=== PATIENT | female | born 1980 | race Caucasian/White ===

== ENCOUNTER 2018-06-19 05:07 | Inpatient (IN) | payer BC ==
[2018-06-19] MEDS ORDERED: Sodium Chloride 0.9% 2.5 ML Syringe FLUSH PRN (05:24)
[2018-06-19] MEDS ORDERED: Sodium Chloride 0.9% 10 ML Syringe FLUSH PRN (05:24)
[2018-06-19] MEDS ORDERED: ceFAZolin 2 GM in Premix Bag 1 BAG IV ONE (05:30)
[2018-06-19] MEDS ORDERED: Oxytocin/0.9 % Sodium Chloride 30 UNIT/500 ML BAG IV SCH (05:30)
[2018-06-19] MEDS ORDERED: Citric Acid/Sodium Citrate Solution 30 ML Cup PO SCH (05:30)
[2018-06-19] MEDS: Lactated Ringers 1,000 ML IV SCH ×2 (06:31→06:55)
[2018-06-19] MEDS ORDERED: ePHEDrine 50 MG/ML SDV ONE ×2 (07:20→07:23)
[2018-06-19] MEDS ORDERED: Ondansetron 4 MG/2 ML SDV ONE (07:20)
[2018-06-19] MEDS ORDERED: Propofol 200 MG/20 ML SDV ONE (07:21)
[2018-06-19] MEDS ORDERED: Sodium Chloride 0.9% 20 ML ONE ×2 (07:23→07:29)
[2018-06-19] MEDS ORDERED: ceFAZolin 1 GM Vial ONE (07:29)
[2018-06-19] MEDS ORDERED: Octyl 2-Cyanoacrylate 1 Tube ONE (07:29)
--- NOTE | 2018-06-19 07:37 | PCM.PREANE ---
Preanesthetic Assessment - Procedure Proposed Procedure: repeat section with tubal ligation - Anesthesia/Transfusion/Family Hx Anesthesia History: Prior Anesthesia Without Reaction Family History of Anesthesia Reaction: No Transfusion History: No Prior Transfusion(s) - Review of Systems Other: Reports: None - Physical Assessment NPO Status Date: 06/18/18 NPO Status Time: 23:00 Height: 5 ft 6 in Weight: 93.44 kg ASA Class: 2 Mental Status: Alert & Oriented x3 Airway Class: Mallampati = 1 Dentition: Reports: Normal Dentition Thyro-Mental Finger Breadths: 3 Mouth Opening Finger Breadths: 3 ROM/Head Extension: Full - Lab Values: Laboratory Last Values WBC 8.19 K/uL (4.0-11.0) 06/19/18 06:05 RBC 3.78 M/uL (4.30-5.90) L 06/19/18 06:05 Hgb 11.9 g/dL (12.0-16.0) L 06/19/18 06:05 Hct 34.5 % (36.0-46.0) L 06/19/18 06:05 MCV 91.3 fL (80.0-98.0) 06/19/18 06:05 MCH 31.5 pg (27.0-32.0) 06/19/18 06:05 MCHC 34.5 g/dL (31.0-37.0) 06/19/18 06:05 RDW Std Deviation 48.6 fl (28.0-62.0) 06/19/18 06:05 RDW Coeff of Eduardo 15 % (11.0-15.0) 06/19/18 06:05 Plt Count 175 K/uL (150-400) 06/19/18 06:05 MPV 10.50 fL (7.40-12.00) 06/19/18 06:05 Nucleated RBC % 0.0 /100WBC 06/19/18 06:05 Nucleated RBCs # 0 K/uL 06/19/18 06:05 Blood Type O POSITIVE 06/19/18 06:05 Antibody Screen NEGATIVE 06/19/18 06:05 - Allergies Allergies/Adverse Reactions: Allergies Allergy/AdvReac Type Severity Reaction Status Date / Time No Known Allergies Allergy Verified 06/14/18 12:28 - Blood Blood Available: Yes Product(s) Available: PRBC - Acknowledgements Anesthesia Type Planned: Spinal Pt an Appropriate Candidate for the Planned Anesthesia: Yes Alternatives and Risks of Anesthesia Discussed w Pt/Guardian: Yes Pt/Guardian Understands and Agrees with Anesthesia Plan: Yes PreAnesthesia Questionnaire HEENT History: Reports: Allergic Rhinitis, Other (See Below) Other HEENT History: wears glasses/contacts Gastrointestinal History: Reports: Other (See Below) Other Gastrointestinal History: heartburn during Genitourinary History: Reports: None EMERGING TECHNOLOGIES DIRECTOR History: Reports: Endometriosis, Musculoskeletal History: Reports: Fracture Other Musculoskeletal History: hx fx toes and fingers Neurological History: Reports: Migraines Hematologic History: Reports: None Immunologic History: Reports: None Oncologic (Cancer) History: Reports: None - Past Surgical History Head Surgeries/Procedures: Reports: None HEENT Surgical History: Reports: Oral Surgery, Tonsillectomy GI Surgical History: Reports: Colonoscopy Female Surgical History: Reports: Section, LEEP, Other (See Below) Other Female Surgeries/Procedures: laparoscopy x2 for endometriosis - SUBSTANCE USE Smoking Status *Q: Former Smoker Tobacco Use Within Last Twelve Months: Cigarettes Second Hand Smoke Exposure: No Recreational Drug Use History: No - HOME MEDS Home Medications: Home Meds Cholecalciferol (Vitamin D3) [Vitamin D3] 400 units PO DAILY 06/14/18 [History] Cyanocobalamin (Vitamin B12) [Vitamin B12] 1 injection IM ASDIRECTED 06/14/18 [ History] Fexofenadine [Camille] 180 mg PO DAILY 06/14/18 [History] Fish Oil/[place]-3 Fatty Acids [Fish Oil] 250 mg PO DAILY 06/14/18 [History] Iron Polysaccharides Complex [Ferrex 150] 150 mg PO ASDIRECTED 06/14/18 [History ] PNV95/Ferrous Fumarate/FA [ Vitamin Tablet] 1 tab PO DAILY 06/14/18 [ History] Triamcinolone Acetonide [Nasacort] 2 spray NASBOTH DAILY 06/14/18 [History] - CURRENT (IN HOUSE) MEDS Current Meds: Current Medications Citric Acid/Sodium Citrate (Bicitra Solution) 30 ml PO .ONCE KAREN Lactated Ringer's (Ringers, Lactated) 1,000 mls @ 500 mls/hr IV .BOLUS KAREN Last Admin: 06/19/18 06:55 Dose: 500 mls/hr Oxytocin/Sodium Chloride (Oxytocin 30 Unit/500 Ml-Ns) 30 unit in 500 mls @ 250 mls/hr IV TITRATE KAREN Sodium Chloride (Saline Flush) 10 ml FLUSH ASDIRECTED PRN PRN Reason: Keep Vein Open Sodium Chloride (Saline Flush) 2.5 ml FLUSH ASDIRECTED PRN PRN Reason: Keep Vein Open Discontinued Medications Cefazolin Sodium (Ancef) Confirm Administered Dose 2 gm .ROUTE .STK-MED ONE Stop: 06/19/18 07:30 Ephedrine Sulfate (Ephedrine Sulfate) Confirm Administered Dose 50 mg .ROUTE .STK-MED ONE Stop: 06/19/18 07:21 Ephedrine Sulfate (Ephedrine Sulfate) Confirm Administered Dose 50 mg .ROUTE .STK-MED ONE Stop: 06/19/18 07:24 Cefazolin Sodium/Dextrose 2 gm (/ Premix) 50 mls @ 100 mls/hr IV ONETIME ONE Stop: 06/19/18 05:59 Sodium Chloride (Normal Saline) Confirm Administered Dose 20 mls @ as directed .ROUTE .STK-MED ONE Stop: 06/19/18 07:24 Sodium Chloride (Normal Saline) Confirm Administered Dose 20 mls @ as directed .ROUTE .STK-MED ONE Stop: 06/19/18 07:30 Octyl Cyanoacrylate (Dermabond Advance) Confirm Administered Dose 1 applic .ROUTE .STK-MED ONE Stop: 06/19/18 07:30 Ondansetron HCl (Zofran) Confirm Administered Dose 4 mg .ROUTE .STK-MED ONE Stop: 06/19/18 07:21 Propofol (Diprivan 20 Ml) Confirm Administered Dose 200 mg .ROUTE .STK-MED ONE Stop: 06/19/18 07:22
[2018-06-19] MEDS ORDERED: Morphine PF 1 MG/ML Amp ONE (07:52)
[2018-06-19] MEDS ORDERED: Oxytocin 10 Units/1 ML SDV ONE (08:57)
[2018-06-19] MEDS ORDERED: Midazolam 1 MG/ML 2 ML SDV ONE (09:02)
[2018-06-19] MEDS ORDERED: Bisacodyl 10 MG Supp RECTAL PRN (09:25)
[2018-06-19] MEDS ORDERED: Ondansetron 4 MG/2 ML SDV IV PRN (09:25)
[2018-06-19] MEDS ORDERED: Lanolin 100% Cream 7 GM Tube TOP PRN (09:25)
[2018-06-19] MEDS ORDERED: diphenhydrAMINE 50 MG/ML SDV IVPUSH PRN ×2 (09:25→10:21)
[2018-06-19] MEDS ORDERED: Lactated Ringers 1,000 ML IV SCH (09:30)
--- NOTE | 2018-06-19 09:34 | PCM.OPNOTE ---
- General Post-Op/Procedure Note Date of Surgery/Procedure: 06/19/18 Operative Procedure(s): repeat with bilateral salpingectomy Findings: live male, 3640g, apgars 8/9, normal appearing tubes and ovaries, anterior low- lying placenta non-adherent, dense adhesion between anterior uterus and abdominal wall Pre Op Diagnosis: 39 week intrauterine , prior , declines VTOL , desires permanent sterilization Post-Op Diagnosis: Same Anesthesia Technique: Spinal Primary Surgeon: Amber Mancia Drill Runner: Arlen Medina Pathology: None Fluid Replacement, Intraop: 2,500 EBL in mLs: 600 Complications: None known Condition: Stable
[2018-06-19] MEDS: Ketorolac 30 MG/ML SDV IVPUSH SCH ×3 (09:52→22:05)
--- NOTE | 2018-06-19 10:02 | PCM.POSTAN ---
POST ANESTHESIA ASSESSMENT - MENTAL STATUS Mental Status: Alert - VITAL SIGNS Pulse Rate: 74 SaO2: 100 Resp Rate: 16 Blood Pressure: 112/65 Temperature: 36.5 C - RESPIRATORY Respiratory Status: Respiratory Rate WNL - CARDIOVASCULAR CV Status: Pulse Rate WNL - GASTROINTESTINAL GI Status: Other Free Text/Narrative:: Reflux/Heartburn - PAIN Pain Score: 2 (Patient has small area R lateral area. Toradol 30mg IV given with some resolve) - POST OP HYDRATION Hydration Status: Adequate & Stable
[2018-06-19] MEDS ORDERED: Nalbuphine 10 MG/1 ML Vial IVPUSH PRN (10:21)
[2018-06-19] MEDS ORDERED: Naloxone 0.4 MG/ML Syringe IVPUSH PRN (10:21)
[2018-06-19] MEDS ORDERED: fentaNYL 100 MCG/2 ML SDV IVPUSH PRN (10:23)
[2018-06-19] MEDS ORDERED: Acetaminophen/oxyCODONE 325-5 MG Tab PO PRN (10:23)
[2018-06-19] MEDS: Docusate Sodium 100 MG Cap PO SCH (22:06)
[2018-06-20] MEDS: Ketorolac 30 MG/ML SDV IVPUSH SCH ×2 (04:58→10:16)
--- NOTE | 2018-06-20 07:03 | PCM.PNPP ---
<Arlen Medina - Last Filed: 06/20/18 08:42> - General Info Date of Service: 06/20/18 Admission Dx/Problem (Free Text): Scheduled repeat Subjective Update: 37 year old POD1 from scheduled, repeat . Patient offers no complaints. Functional Status: Reports: Pain Controlled, Tolerating Diet, Ambulating, Urinating - Review of Systems General: Denies: Fever, Chills HEENT: Denies: Headaches, Visual Changes Pulmonary: Denies: Shortness of Breath, Pleuritic Chest Pain, Cough Cardiovascular: Denies: Chest Pain, Edema Gastrointestinal: Denies: Constipation, Diarrhea, Nausea, Vomiting Genitourinary: Denies: Dysuria, Frequency, Burning Musculoskeletal: Denies: Leg Pain Neurological: Denies: Dizziness, Headache - General Info Date of Service: 06/20/18 - Patient Data Vital Signs - Most Recent: Last Vital Signs Temp 36.3 C 06/19/18 23:00 Pulse 88 06/20/18 04:56 Resp 18 06/20/18 06:00 BP 105/55 L 06/20/18 04:56 Pulse Ox 100 06/20/18 06:00 Weight - Most Recent: 93.44 kg I&O - Last 24 Hours: Intake & Output 06/19/18 06/20/18 06/20/18 22:59 06:59 14:59 Output Total 400 525 Balance -400 -525 Lab Results - Last 24 Hours: Laboratory Results - last 24 hr 06/19/18 06/19/18 06/20/18 Range/Units 06:05 08:42 05:15 Hgb 9.5 L (12.0-16.0) g/dL Hct 27.7 L (36.0-46.0) % Cord ABG pH 7.355 (7.18-7.38) Cord ABG Base Excess -1 H (-10--2) Cord VBG pH 7.368 (7.25-7.45) Cord VBG Base Excess -1 H (-10--2) Blood Type O POSITIVE Antibody Screen NEGATIVE Med Orders - Current: Current Medications Bisacodyl (Dulcolax) 10 mg RECTAL .ONCE PRN PRN Reason: Constipation Diphenhydramine HCl (Benadryl) 25 mg IVPUSH Q6H PRN PRN Reason: Itching or Nausea Diphenhydramine HCl (Benadryl) 25 mg IVPUSH Q4H PRN PRN Reason: Itching Stop: 06/20/18 10:22 Docusate Sodium (Colace) 100 mg PO BID [facility] Last Admin: 06/19/18 22:06 Dose: 100 mg Emollient Ointment (Lansinoh Hpa) 0 gm TOP ASDIRECTED PRN PRN Reason: Sore Nipples Fentanyl (Sublimaze) 25 - 50 mcg IVPUSH Q30M PRN PRN Reason: Pain Lactated Ringer's (Ringers, Lactated) 1,000 mls @ 125 mls/hr IV ASDIRECTED KAREN Ibuprofen (Motrin) 800 mg PO Q8H PRN PRN Reason: mild pain or fever Ketorolac Tromethamine (Toradol) 30 mg IVPUSH Q6H KAREN Stop: 06/20/18 09:31 Last Admin: 06/20/18 04:58 Dose: Not Given Nalbuphine HCl (Nubain) 5 mg IVPUSH Q3H PRN PRN Reason: Pruritis Stop: 06/20/18 10:22 Naloxone HCl (Narcan) 0.1 mg IVPUSH ONETIME PRN PRN Reason: Other Stop: 06/20/18 10:22 Ondansetron HCl (Zofran) 4 mg IV Q4H PRN PRN Reason: Nausea/Vomiting Oxycodone/Acetaminophen (Percocet 325-5 Mg) 1 tab PO Q4H PRN PRN Reason: Pain (moderate 4-6) Oxycodone/Acetaminophen (Percocet 325-5 Mg) 2 tab PO Q4H PRN PRN Reason: Pain (moderate 4-6) Oxycodone/Acetaminophen (Percocet 325-5 Mg) 1 - 2 tab PO Q6H PRN PRN Reason: Pain Stop: 06/21/18 14:00 Last Admin: 06/19/18 13:33 Dose: 1 tab Discontinued Medications Cefazolin Sodium (Ancef) Confirm Administered Dose 2 gm .ROUTE .STK-MED ONE Stop: 06/19/18 07:30 Citric Acid/Sodium Citrate (Bicitra Solution) 30 ml PO .ONCE [facility] Last Admin: 06/19/18 08:14 Dose: 30 ml Ephedrine Sulfate (Ephedrine Sulfate) Confirm Administered Dose 50 mg .ROUTE .STK-MED ONE Stop: 06/19/18 07:21 Ephedrine Sulfate (Ephedrine Sulfate) Confirm Administered Dose 50 mg .ROUTE .STK-MED ONE Stop: 06/19/18 07:24 Cefazolin Sodium/Dextrose 2 gm (/ Premix) 50 mls @ 100 mls/hr IV ONETIME ONE Stop: 06/19/18 05:59 Lactated Ringer's (Ringers, Lactated) 1,000 mls @ 500 mls/hr IV .BOLUS KAREN Last Admin: 06/19/18 06:55 Dose: 500 mls/hr Oxytocin/Sodium Chloride (Oxytocin 30 Unit/500 Ml-Ns) 30 unit in 500 mls @ 250 mls/hr IV TITRATE KAREN Sodium Chloride (Normal Saline) Confirm Administered Dose 20 mls @ as directed .ROUTE .STK-MED ONE Stop: 06/19/18 07:24 Sodium Chloride (Normal Saline) Confirm Administered Dose 20 mls @ as directed .ROUTE .STK-MED ONE Stop: 06/19/18 07:30 Midazolam HCl (Versed 1 Mg/Ml) Confirm Administered Dose 2 mg .ROUTE .STK-MED ONE Stop: 06/19/18 09:03 Morphine Sulfate (Duramorph Pf) Confirm Administered Dose 1 mg .ROUTE .STK-MED ONE Stop: 06/19/18 07:53 Octyl Cyanoacrylate (Dermabond Advance) Confirm Administered Dose 1 applic .ROUTE .STK-MED ONE Stop: 06/19/18 07:30 Ondansetron HCl (Zofran) Confirm Administered Dose 4 mg .ROUTE .STK-MED ONE Stop: 06/19/18 07:21 Oxytocin (Pitocin) Confirm Administered Dose 20 unit .ROUTE .STK-MED ONE Stop: 06/19/18 08:58 Propofol (Diprivan 20 Ml) Confirm Administered Dose 200 mg .ROUTE .STK-MED ONE Stop: 06/19/18 07:22 Sodium Chloride (Saline Flush) 10 ml FLUSH ASDIRECTED PRN PRN Reason: Keep Vein Open Sodium Chloride (Saline Flush) 2.5 ml FLUSH ASDIRECTED PRN PRN Reason: Keep Vein Open - Interaction Disposition, : [place] in Room with Family Infant Interaction: Holding Infant Feeding: Breastfed Infant; Nursed Well Support Person: - Recovery Exam Fundal Tone: Firm Fundal Level: 2 Fingerbreadths Below Umbilicus Fundal Placement: Midline Lochia Amount: Small Lochia Color: Rubra/Red Perineum Description: Intact, Minimal Bruising/Swelling Episiotomy/Laceration: None Bladder Status: Voiding Urinary Elimination: Voided - Exam General: Alert, Oriented, No Acute Distress HEENT: Pupils Equal, Pupils Reactive Lungs: Clear to Auscultation, Normal Respiratory Effort. No: Crackles, Wheezing Cardiovascular: Regular Rate, Regular Rhythm, No Murmurs GI/Abdominal Exam: Normal Bowel Sounds, No Distention. No: Guarding, Rigid, Rebound Extremities: Normal Inspection, Normal Range of Motion, Non-Tender, No Pedal Edema, Normal Capillary Refill Skin: Warm, Dry, Intact Wound/Incisions: Healing Well, Dressing Dry and Intact Neurological: No New Focal Deficit Psy/Mental Status: Alert, Normal Affect, Normal Mood - Problem List Review Problem List Initiated/Reviewed/Updated: Yes - Assessment Assessment:: 37 year old POD1 from scheduled repeat . well, minimal lochia, pain controlled. - Plan Plan:: Continue routine postop cares. Likely discharge tomorrow. <Amber Mancia - Last Filed: 06/20/18 09:00> - Patient Data Vital Signs - Most Recent: Last Vital Signs Temp 36.5 C 06/20/18 07:18 Pulse 74 06/20/18 07:18 Resp 18 06/20/18 07:18 BP 112/65 06/20/18 07:18 Pulse Ox 96 06/20/18 07:00 I&O - Last 24 Hours: Intake & Output 06/19/18 06/20/18 06/20/18 22:59 06:59 14:59 Output Total 400 525 300 Balance -400 -525 -300 Lab Results - Last 24 Hours: Laboratory Results - last 24 hr 06/19/18 06/20/18 Range/Units 08:42 05:15 Hgb 9.5 L (12.0-16.0) g/dL Hct 27.7 L (36.0-46.0) % Cord ABG pH 7.355 (7.18-7.38) Cord ABG Base Excess -1 H (-10--2) Cord VBG pH 7.368 (7.25-7.45) Cord VBG Base Excess -1 H (-10--2) Med Orders - Current: Current Medications Bisacodyl (Dulcolax) 10 mg RECTAL .ONCE PRN PRN Reason: Constipation Diphenhydramine HCl (Benadryl) 25 mg IVPUSH Q6H PRN PRN Reason: Itching or Nausea Diphenhydramine HCl (Benadryl) 25 mg IVPUSH Q4H PRN PRN Reason: Itching Stop: 06/20/18 10:22 Docusate Sodium (Colace) 100 mg PO BID [facility] Last Admin: 06/19/18 22:06 Dose: 100 mg Emollient Ointment (Lansinoh Hpa) 0 gm TOP ASDIRECTED PRN PRN Reason: Sore Nipples Fentanyl (Sublimaze) 25 - 50 mcg IVPUSH Q30M PRN PRN Reason: Pain Lactated Ringer's (Ringers, Lactated) 1,000 mls @ 125 mls/hr IV ASDIRECTED KAREN Ibuprofen (Motrin) 800 mg PO Q8H PRN PRN Reason: mild pain or fever Ketorolac Tromethamine (Toradol) 30 mg IVPUSH Q6H [facility] Stop: 06/20/18 09:31 Last Admin: 06/20/18 04:58 Dose: Not Given Nalbuphine HCl (Nubain) 5 mg IVPUSH Q3H PRN PRN Reason: Pruritis Stop: 06/20/18 10:22 Naloxone HCl (Narcan) 0.1 mg IVPUSH ONETIME PRN PRN Reason: Other Stop: 06/20/18 10:22 Ondansetron HCl (Zofran) 4 mg IV Q4H PRN PRN Reason: Nausea/Vomiting Oxycodone/Acetaminophen (Percocet 325-5 Mg) 1 tab PO Q4H PRN PRN Reason: Pain (moderate 4-6) Oxycodone/Acetaminophen (Percocet 325-5 Mg) 2 tab PO Q4H PRN PRN Reason: Pain (moderate 4-6) Oxycodone/Acetaminophen (Percocet 325-5 Mg) 1 - 2 tab PO Q6H PRN PRN Reason: Pain Stop: 06/21/18 14:00 Last Admin: 06/19/18 13:33 Dose: 1 tab Discontinued Medications Cefazolin Sodium (Ancef) Confirm Administered Dose 2 gm .ROUTE .STK-MED ONE Stop: 06/19/18 07:30 Citric Acid/Sodium Citrate (Bicitra Solution) 30 ml PO .ONCE KAREN Last Admin: 06/19/18 08:14 Dose: 30 ml Ephedrine Sulfate (Ephedrine Sulfate) Confirm Administered Dose 50 mg .ROUTE .STK-MED ONE Stop: 06/19/18 07:21 Ephedrine Sulfate (Ephedrine Sulfate) Confirm Administered Dose 50 mg .ROUTE .STK-MED ONE Stop: 06/19/18 07:24 Cefazolin Sodium/Dextrose 2 gm (/ Premix) 50 mls @ 100 mls/hr IV ONETIME ONE Stop: 06/19/18 05:59 Lactated Ringer's (Ringers, Lactated) 1,000 mls @ 500 mls/hr IV .BOLUS KAREN Last Admin: 06/19/18 06:55 Dose: 500 mls/hr Oxytocin/Sodium Chloride (Oxytocin 30 Unit/500 Ml-Ns) 30 unit in 500 mls @ 250 mls/hr IV TITRATE KAREN Sodium Chloride (Normal Saline) Confirm Administered Dose 20 mls @ as directed .ROUTE .ST-MED ONE Stop: 06/19/18 07:24 Sodium Chloride (Normal Saline) Confirm Administered Dose 20 mls @ as directed .ROUTE .STK-MED ONE Stop: 06/19/18 07:30 Midazolam HCl (Versed 1 Mg/Ml) Confirm Administered Dose 2 mg .ROUTE .STK-MED ONE Stop: 06/19/18 09:03 Morphine Sulfate (Duramorph Pf) Confirm Administered Dose 1 mg .ROUTE .STK-MED ONE Stop: 06/19/18 07:53 Octyl Cyanoacrylate (Dermabond Advance) Confirm Administered Dose 1 applic .ROUTE .STK-MED ONE Stop: 06/19/18 07:30 Ondansetron HCl (Zofran) Confirm Administered Dose 4 mg .ROUTE .STK-MED ONE Stop: 06/19/18 07:21 Oxytocin (Pitocin) Confirm Administered Dose 20 unit .ROUTE .STK-MED ONE Stop: 06/19/18 08:58 Propofol (Diprivan 20 Ml) Confirm Administered Dose 200 mg .ROUTE .STK-MED ONE Stop: 06/19/18 07:22 Sodium Chloride (Saline Flush) 10 ml FLUSH ASDIRECTED PRN PRN Reason: Keep Vein Open Sodium Chloride (Saline Flush) 2.5 ml FLUSH ASDIRECTED PRN PRN Reason: Keep Vein Open - Problem List Review Problem List Initiated/Reviewed/Updated: Yes - My Orders Last 24 Hours: My Active Orders 06/19/18 09:25 Patient Status [ADT] Routine Ambulate [RC] PER UNIT ROUTINE Communication Order [RC] PER UNIT ROUTINE Communication Order [RC] PER UNIT ROUTINE Communication Order [RC] Per Unit Routine Intake and Output [RC] Q8H May Shower [RC] ASDIRECTED Notify Provider Intake and Out [RC] ASDIRECTED Notify Provider Vital Signs [RC] ASDIRECTED RT Incentive Spirometry [RC] Q2HWA Vital Signs [RC] PER UNIT ROUTINE Acetaminophen/oxyCODONE [Percocet 325-5 MG] 1 tab PO Q4H PRN Acetaminophen/oxyCODONE [Percocet 325-5 MG] 2 tab PO Q4H PRN Bisacodyl [Dulcolax] 10 mg RECTAL .ONCE PRN Ibuprofen [Motrin] 800 mg PO Q8H PRN Lanolin [Lansinoh HPA] See Dose Instructions TOP ASDIRECTED PRN Ondansetron [Zofran] 4 mg IV Q4H PRN diphenhydrAMINE [Benadryl] 25 mg IVPUSH Q6H PRN Abdominal Binder [OM.PC] Routine Assess Lochia [WOMSER] Per Unit Routine Assess Uterine Involution [WOMSER] Per Unit Routine Breast Pump [WOMSER] Per Unit Routine Peripheral IV Discontinue [OM.PC] Routine Sequential Compression Device [OM.PC] Per Unit Routine Resuscitation Status Routine 06/19/18 09:30 Ketorolac [Toradol] 30 mg IVPUSH Q6H Lactated Ringers [Ringers, Lactated] 1,000 ml IV ASDIRECTED 06/19/18 21:00 Docusate Sodium [Colace] 100 mg PO BID 06/19/18 Dinner Regular Diet [DIET] - Assessment Assessment:: Patient was seen and examined by me and I agree with above.
--- NOTE | 2018-06-20 07:18 | PCM48HPAN ---
Post Anesthesia Note - EVALUATION WITHIN 48HRS OF ANESTHETIC Vital Signs in Normal Range: Yes Patient Participated in Evaluation: Yes Respiratory Function Stable: Yes Airway Patent: Yes Cardiovascular Function Stable: Yes Hydration Status Stable: Yes Pain Control Satisfactory: Yes Nausea and Vomiting Control Satisfactory: Yes Mental Status Recovered: Yes Pulse Rate: 74 Resp Rate: 18 Temperature: 36.5 C Blood Pressure: 112/65
--- NOTE | 2018-06-20 08:09 | OR ---
SURGEON: Amber Mancia M.D. DATE OF PROCEDURE: 06/19/2018 PREOPERATIVE DIAGNOSIS: A 39-week intrauterine , prior delivery, desires repeat C- section and desires sterilization. POSTOPERATIVE DIAGNOSIS: A 39-week intrauterine , prior delivery, desires repeat C- section and desires sterilization. PROCEDURE: Repeat low transverse section with bilateral salpingectomy. GAS WELDER APPRENTICE: Arlen Medina MS4. ANESTHESIA: Spinal. ESTIMATED BLOOD LOSS: 600 mL. FLUIDS: 2500 mL crystalloid. FINDINGS: Liveborn male, score 8 and 9, weighing 3640 g. Normal-appearing uterus, tubes, and ovaries. The placenta was low lying and anterior just above the incision line but nonadherent. COMPLICATIONS: None known. DISPOSITION: Mother is in recovery in good condition. is in nursery in good condition. BRIEF HISTORY: This is a 37-year-old female. She is G6, P4-0-1-4, presents for a repeat section. This is her third ; she also requests permanent sterilization. She was offered alternative contraception, including hormonal barrier, vasectomy, and long-acting reversible contraception. She declined these, and she desires to proceed with permanent sterilization. She requests complete salpingectomy, as she wants no risk of ectopic and risk of failure. She understands this may reduce risk of ovarian cancer. She also understands it is completely irreversible. Risks of delivery were discussed including bleeding, infection, injury to bowel, bladder, blood vessels, ureters, or other organs, risk of anesthesia, understanding all these risks, she does desire to proceed with a repeat with bilateral salpingectomy. DESCRIPTION OF PROCEDURE: With the patient in left tilt position, under adequate spinal analgesia, the abdomen was prepped with chlorhexidine and draped in usual fashion for abdominal surgery. Julian catheter had been placed. SCDs were in place, and Ancef 2 g IV had been given. After documentation of adequate analgesia and an appropriate time-out, which had been held, the prior cicatrix was excised, and the incision was carried through the subcutaneous tissue to the fascia, which was scored transversely in the midline. The fascial incision was extended laterally using curved [place] scissors. The fascia was elevated from the underlying rectus muscle and using sharp and blunt dissection. The rectus muscles were then in midline using sharp and blunt dissection. There was a dense adhesion between the anterior abdominal wall and the anterior uterus, and this was incised using electrocautery. The Sebastian O retractor was then placed. The visceroperitoneum over the lower uterine segment was incised to develop an adequate bladder flap. There was note of prominent blood vessels over the lower uterine segment, and a transverse curvilinear incision was made over the lower uterine segment, trying to avoid these vessels as much as possible, and a finger was used to enter the uterine cavity and this incision was extended using blunt dissection. It was apparent that the anterior low- lying placenta was just above the incision site. Allis clamp was used to rupture membranes. Clear fluid was noted. The head was delivered via the uterine incision and was bulb suctioned by nose and mouth. The remainder of the 's shoulders and body were delivered without any difficulty with the cord being cut and clamped. The was handed to the nurse in attendance at delivery. The infant is a liveborn male, scores 8 and 9, weighing 3640 g. Cord blood was collected for cord ABGs, as well as routine cord blood sampling. The placenta was removed by manual extraction. The uterus was cleaned with dry laparotomy tape. The cervix was opened with a ring forceps. The uterine incision was closed with a running lock suture of 0 Polysorb followed by an imbricating layer of 0 Polysorb followed by several [id number] sutures in the midline where the prominent blood vessels had been noted for complete hemostasis. I did confirm verbally with the patient that she desired permanent sterilization, and at this point, the tips of the fimbria were then grasped with a Jun clamp. The mesosalpinx was incised using the Harmonic Blaine at the setting of 3 to the proximal cornua, where the tube was transected, and the tube was sent to Pathology. This was repeated on the opposite side. The mesosalpinx was hemostatic. The uterine incision was inspected and was hemostatic; therefore, the Sebastian O retractor was removed, after the pericolic gutters and posterior cul-de-sac had been cleaned with wet laparotomy tape. After the Sebastian retractor had been removed, the uterine incision was again inspected, it remained completely hemostatic. The rectus muscle and peritoneum were loosely approximated in the midline using a running mattress suture of 0 Polysorb. The posterior aspect of the fascia was inspected, and areas of bleeding that were noted were cauterized. The fascial incision was closed with a running suture of 0 Polysorb. Subcutaneous tissue was irrigated. Any areas of bleeding that were noted were cauterized. The skin was closed with a running subcuticular suture of 3-0 Monocryl and followed by Dermabond. Final sponge, needle, and instrument counts were reported as correct. There were no known complications. The infant is in nursery in good condition. Mother remains in recovery in good condition. CARINA PIERSON /[id number]
[2018-06-20] MEDS: Acetaminophen/oxyCODONE 325-5 MG Tab PO PRN ×4 (08:58→21:44)
[2018-06-20] MEDS: Docusate Sodium 100 MG Cap PO SCH ×2 (09:00→21:44)
[2018-06-20] MEDS: Ibuprofen 800 MG Tab PO PRN ×2 (15:51→23:46)
[2018-06-21] MEDS: Acetaminophen/oxyCODONE 325-5 MG Tab PO PRN ×2 (03:57→08:25)
--- NOTE | 2018-06-21 07:42 | PCM.PNPP ---
<Arlen Medina - Last Filed: 06/21/18 08:23> - General Info Date of Service: 06/21/18 Admission Dx/Problem (Free Text): repeat Subjective Update: 37 year old POD2 from scheduled, repeat . Patient offers no complaints. Functional Status: Reports: Pain Controlled, Tolerating Diet, Ambulating, Urinating - Review of Systems General: Denies: Fever, Chills HEENT: Denies: Headaches, Visual Changes Pulmonary: Denies: Shortness of Breath, Pleuritic Chest Pain, Cough Cardiovascular: Denies: Chest Pain, Edema Gastrointestinal: Denies: Constipation, Diarrhea, Nausea, Vomiting Genitourinary: Denies: Dysuria, Frequency, Burning Musculoskeletal: Denies: Leg Pain Neurological: Denies: Dizziness, Headache - General Info Date of Service: 06/21/18 - Patient Data Vital Signs - Most Recent: Last Vital Signs Temp 36.7 C 06/21/18 04:00 Pulse 100 06/21/18 04:00 Resp 18 06/21/18 04:00 BP 108/62 06/21/18 04:00 Pulse Ox 97 06/21/18 04:00 Weight - Most Recent: 93.44 kg Med Orders - Current: Current Medications Bisacodyl (Dulcolax) 10 mg RECTAL .ONCE PRN PRN Reason: Constipation Diphenhydramine HCl (Benadryl) 25 mg IVPUSH Q6H PRN PRN Reason: Itching or Nausea Docusate Sodium (Colace) 100 mg PO BID [facility] Last Admin: 06/20/18 21:44 Dose: 100 mg Emollient Ointment (Lansinoh Hpa) 0 gm TOP ASDIRECTED PRN PRN Reason: Sore Nipples Fentanyl (Sublimaze) 25 - 50 mcg IVPUSH Q30M PRN PRN Reason: Pain Lactated Ringer's (Ringers, Lactated) 1,000 mls @ 125 mls/hr IV ASDIRECTED [facility] Ibuprofen (Motrin) 800 mg PO Q8H PRN PRN Reason: mild pain or fever Last Admin: 06/20/18 23:46 Dose: 800 mg Ondansetron HCl (Zofran) 4 mg IV Q4H PRN PRN Reason: Nausea/Vomiting Oxycodone/Acetaminophen (Percocet 325-5 Mg) 1 tab PO Q4H PRN PRN Reason: Pain (moderate 4-6) Last Admin: 06/20/18 21:44 Dose: 1 tab Oxycodone/Acetaminophen (Percocet 325-5 Mg) 2 tab PO Q4H PRN PRN Reason: Pain (moderate 4-6) Last Admin: 06/21/18 03:57 Dose: 2 tab Oxycodone/Acetaminophen (Percocet 325-5 Mg) 1 - 2 tab PO Q6H PRN PRN Reason: Pain Stop: 06/21/18 14:00 Last Admin: 06/19/18 13:33 Dose: 1 tab Discontinued Medications Cefazolin Sodium (Ancef) Confirm Administered Dose 2 gm .ROUTE .STK-MED ONE Stop: 06/19/18 07:30 Citric Acid/Sodium Citrate (Bicitra Solution) 30 ml PO .ONCE KAREN Last Admin: 06/19/18 08:14 Dose: 30 ml Diphenhydramine HCl (Benadryl) 25 mg IVPUSH Q4H PRN PRN Reason: Itching Stop: 06/20/18 10:22 Ephedrine Sulfate (Ephedrine Sulfate) Confirm Administered Dose 50 mg .ROUTE .STK-MED ONE Stop: 06/19/18 07:21 Ephedrine Sulfate (Ephedrine Sulfate) Confirm Administered Dose 50 mg .ROUTE .STK-MED ONE Stop: 06/19/18 07:24 Cefazolin Sodium/Dextrose 2 gm (/ Premix) 50 mls @ 100 mls/hr IV ONETIME ONE Stop: 06/19/18 05:59 Lactated Ringer's (Ringers, Lactated) 1,000 mls @ 500 mls/hr IV .BOLUS KAREN Last Admin: 06/19/18 06:55 Dose: 500 mls/hr Oxytocin/Sodium Chloride (Oxytocin 30 Unit/500 Ml-Ns) 30 unit in 500 mls @ 250 mls/hr IV TITRATE KAREN Sodium Chloride (Normal Saline) Confirm Administered Dose 20 mls @ as directed .ROUTE .STK-MED ONE Stop: 06/19/18 07:24 Sodium Chloride (Normal Saline) Confirm Administered Dose 20 mls @ as directed .ROUTE .STK-MED ONE Stop: 06/19/18 07:30 Ketorolac Tromethamine (Toradol) 30 mg IVPUSH Q6H [facility] Stop: 06/20/18 09:31 Last Admin: 06/20/18 10:16 Dose: 30 mg Midazolam HCl (Versed 1 Mg/Ml) Confirm Administered Dose 2 mg .ROUTE .STK-MED ONE Stop: 06/19/18 09:03 Morphine Sulfate (Duramorph Pf) Confirm Administered Dose 1 mg .ROUTE .STK-MED ONE Stop: 06/19/18 07:53 Nalbuphine HCl (Nubain) 5 mg IVPUSH Q3H PRN PRN Reason: Pruritis Stop: 06/20/18 10:22 Naloxone HCl (Narcan) 0.1 mg IVPUSH ONETIME PRN PRN Reason: Other Stop: 06/20/18 10:22 Octyl Cyanoacrylate (Dermabond Advance) Confirm Administered Dose 1 applic .ROUTE .STK-MED ONE Stop: 06/19/18 07:30 Ondansetron HCl (Zofran) Confirm Administered Dose 4 mg .ROUTE .STK-MED ONE Stop: 06/19/18 07:21 Oxytocin (Pitocin) Confirm Administered Dose 20 unit .ROUTE .STK-MED ONE Stop: 06/19/18 08:58 Propofol (Diprivan 20 Ml) Confirm Administered Dose 200 mg .ROUTE .STK-MED ONE Stop: 06/19/18 07:22 Sodium Chloride (Saline Flush) 10 ml FLUSH ASDIRECTED PRN PRN Reason: Keep Vein Open Sodium Chloride (Saline Flush) 2.5 ml FLUSH ASDIRECTED PRN PRN Reason: Keep Vein Open - Infant Interaction Disposition, : in Room with Family Infant Interaction: Holding Infant Feeding: Breastfed ; Nursed Well Support Person: - Recovery Exam Fundal Tone: Firm Fundal Level: 2 Fingerbreadths Below Umbilicus Fundal Placement: Midline Lochia Amount: Scant Lochia Color: Rubra/Red Perineum Description: Intact, Minimal Bruising/Swelling Episiotomy/Laceration: None Bladder Status: Voiding Urinary Elimination: Voided - Exam General: Alert, Oriented, No Acute Distress HEENT: Pupils Equal, Pupils Reactive Lungs: Clear to Auscultation, Normal Respiratory Effort. No: Wheezing Cardiovascular: Regular Rate, Regular Rhythm, No Murmurs GI/Abdominal Exam: Normal Bowel Sounds, Non-Tender, No Distention. No: Guarding , Rigid, Rebound Extremities: Normal Inspection, Normal Range of Motion, Non-Tender, No Pedal Edema, Normal Capillary Refill Skin: Warm, Dry, Intact Wound/Incisions: Healing Well, Dressing Dry and Intact Neurological: No New Focal Deficit Psy/Mental Status: Alert, Normal Affect, Normal Mood - Problem List Review Problem List Initiated/Reviewed/Updated: Yes - Assessment Assessment:: 37 year old POD2 from scheduled, repeat . continuing to go well. Minimal lochia. Pain controlled. Ready for discharge. - Plan Plan:: Discharge today Follow up in clinic in 2 weeks for wound check, 6 weeks for routine exam Pain meds: percocet and ibuprofen <Amber Mancia - Last Filed: 06/21/18 08:41> - Patient Data Vital Signs - Most Recent: Last Vital Signs Temp 36.7 C 06/21/18 04:00 Pulse 100 06/21/18 04:00 Resp 18 06/21/18 04:00 BP 108/62 06/21/18 04:00 Pulse Ox 97 06/21/18 04:00 Med Orders - Current: Current Medications Bisacodyl (Dulcolax) 10 mg RECTAL .ONCE PRN PRN Reason: Constipation Diphenhydramine HCl (Benadryl) 25 mg IVPUSH Q6H PRN PRN Reason: Itching or Nausea Docusate Sodium (Colace) 100 mg PO BID [facility] Last Admin: 06/21/18 08:25 Dose: 100 mg Emollient Ointment (Lansinoh Hpa) 0 gm TOP ASDIRECTED PRN PRN Reason: Sore Nipples Fentanyl (Sublimaze) 25 - 50 mcg IVPUSH Q30M PRN PRN Reason: Pain Lactated Ringer's (Ringers, Lactated) 1,000 mls @ 125 mls/hr IV ASDIRECTED [facility] Ibuprofen (Motrin) 800 mg PO Q8H PRN PRN Reason: mild pain or fever Last Admin: 06/20/18 23:46 Dose: 800 mg Ondansetron HCl (Zofran) 4 mg IV Q4H PRN PRN Reason: Nausea/Vomiting Oxycodone/Acetaminophen (Percocet 325-5 Mg) 1 tab PO Q4H PRN PRN Reason: Pain (moderate 4-6) Last Admin: 06/20/18 21:44 Dose: 1 tab Oxycodone/Acetaminophen (Percocet 325-5 Mg) 2 tab PO Q4H PRN PRN Reason: Pain (moderate 4-6) Last Admin: 06/21/18 08:25 Dose: 2 tab Oxycodone/Acetaminophen (Percocet 325-5 Mg) 1 - 2 tab PO Q6H PRN PRN Reason: Pain Stop: 06/21/18 14:00 Last Admin: 06/19/18 13:33 Dose: 1 tab Discontinued Medications Cefazolin Sodium (Ancef) Confirm Administered Dose 2 gm .ROUTE .STK-MED ONE Stop: 06/19/18 07:30 Citric Acid/Sodium Citrate (Bicitra Solution) 30 ml PO .ONCE KAREN Last Admin: 06/19/18 08:14 Dose: 30 ml Diphenhydramine HCl (Benadryl) 25 mg IVPUSH Q4H PRN PRN Reason: Itching Stop: 06/20/18 10:22 Ephedrine Sulfate (Ephedrine Sulfate) Confirm Administered Dose 50 mg .ROUTE .STK-MED ONE Stop: 06/19/18 07:21 Ephedrine Sulfate (Ephedrine Sulfate) Confirm Administered Dose 50 mg .ROUTE .STK-MED ONE Stop: 06/19/18 07:24 Cefazolin Sodium/Dextrose 2 gm (/ Premix) 50 mls @ 100 mls/hr IV ONETIME ONE Stop: 06/19/18 05:59 Lactated Ringer's (Ringers, Lactated) 1,000 mls @ 500 mls/hr IV .BOLUS KAREN Last Admin: 06/19/18 06:55 Dose: 500 mls/hr Oxytocin/Sodium Chloride (Oxytocin 30 Unit/500 Ml-Ns) 30 unit in 500 mls @ 250 mls/hr IV TITRATE KAREN Sodium Chloride (Normal Saline) Confirm Administered Dose 20 mls @ as directed .ROUTE .STK-MED ONE Stop: 06/19/18 07:24 Sodium Chloride (Normal Saline) Confirm Administered Dose 20 mls @ as directed .ROUTE .STK-MED ONE Stop: 06/19/18 07:30 Ketorolac Tromethamine (Toradol) 30 mg IVPUSH Q6H [facility] Stop: 06/20/18 09:31 Last Admin: 06/20/18 10:16 Dose: 30 mg Midazolam HCl (Versed 1 Mg/Ml) Confirm Administered Dose 2 mg .ROUTE .STK-MED ONE Stop: 06/19/18 09:03 Morphine Sulfate (Duramorph Pf) Confirm Administered Dose 1 mg .ROUTE .STK-MED ONE Stop: 06/19/18 07:53 Nalbuphine HCl (Nubain) 5 mg IVPUSH Q3H PRN PRN Reason: Pruritis Stop: 06/20/18 10:22 Naloxone HCl (Narcan) 0.1 mg IVPUSH ONETIME PRN PRN Reason: Other Stop: 06/20/18 10:22 Octyl Cyanoacrylate (Dermabond Advance) Confirm Administered Dose 1 applic .ROUTE .STK-MED ONE Stop: 06/19/18 07:30 Ondansetron HCl (Zofran) Confirm Administered Dose 4 mg .ROUTE .STK-MED ONE Stop: 06/19/18 07:21 Oxytocin (Pitocin) Confirm Administered Dose 20 unit .ROUTE .STK-MED ONE Stop: 06/19/18 08:58 Propofol (Diprivan 20 Ml) Confirm Administered Dose 200 mg .ROUTE .STK-MED ONE Stop: 06/19/18 07:22 Sodium Chloride (Saline Flush) 10 ml FLUSH ASDIRECTED PRN PRN Reason: Keep Vein Open Sodium Chloride (Saline Flush) 2.5 ml FLUSH ASDIRECTED PRN PRN Reason: Keep Vein Open - Problem List & Annotations (1) delivery delivered SNOMED Code(s): 306040439 Code(s): O82 - ENCOUNTER FOR DELIVERY WITHOUT INDICATION Status: Acute Current Visit: Yes - Problem List Review Problem List Initiated/Reviewed/Updated: Yes - Assessment Assessment:: Patient was seen and examined I agree except there is bruising on the right side of the incision, with extension onto the mons, this is stable from yesterday. I reviewed with patient, expectation of some bruising in labia in the next 1-2 weeks.
[2018-06-21] MEDS: Docusate Sodium 100 MG Cap PO SCH (08:25)
== END 2018-06-21 10:55 | disposition home or self-care (01) | DRG 540 ==
LOC: MW.MS 05:07 → MW.OB 05:08
PROVIDERS: ADMIT Obstetrics & Gynecology; ATTEND Obstetrics & Gynecology
PROC: 10D00Z1 Extraction of Products of Conception, Low, Open Approach (ICD-10-PCS; principal; 2018-06-19)
PROC: 0UT70ZZ Resection of Bilateral Fallopian Tubes, Open Approach (ICD-10-PCS; 2018-06-19)
PROC: 10D17ZZ Extraction of Products of Conception, Retained, Via Natural or Artificial Opening (ICD-10-PCS; 2018-06-19)
DX: O34.211 Maternal care for low transverse scar from previous cesarean delivery (principal); N85.8 Other specified noninflammatory disorders of uterus; Z3A.39 39 weeks gestation of pregnancy; Z37.0 Single live birth; Z91.030 Bee allergy status; Z30.2 Encounter for sterilization; Q51.3 Bicornate uterus
CPT/HCPCS: 01961; 36415; 59025; 82803; 85014; 85018; 85027; 86850; 86900; 86901; 88302; A9270-GY; J0690; J1885; J2250; J2274; J2405; J2590; J2704; J7120